=== PATIENT | female | born 1950 | race African-American/Black ===

== ENCOUNTER 2021-01-29 10:28 | Emergency (ER) | payer MEDICARE, MEDICAID ==
[~2021-01-29] VITALS: Ht 149.9 cm; Wt 46.0 kg
[~2021-01-29 10:28] MED LIST: BECL8.7A6 INH; ENAL5TAB21 PO; FURO-151 PO; LOVA40TA73 PO; POTA20TA12 PO; TRAV2.5D9 EACHEYE
[2021-01-29] MEDS ORDERED: DIPHENHYDRAMINE 25MG CAPSULE PO ONE (13:00)
[2021-01-29] MEDS ORDERED: PREDNISONE 20MG TABLET PO ONE (13:00)
[2021-01-29] MEDS ORDERED: P20 PO (14:14)
[2021-01-29] MEDS ORDERED: DIPH25CA83 MT (14:14)
[2021-01-29] MEDS ORDERED: P20 MT (14:17)
[2021-01-29 14:49] VITALS: BP 157/72
== END 2021-01-29 14:56 | disposition home or self-care (01) ==
LOC: ER 10:28
DX: T78.40XA Allergy, unspecified, initial encounter (principal); X58.XXXA Exposure to other specified factors, initial encounter; E78.00 Pure hypercholesterolemia, unspecified; I10 Essential (primary) hypertension; Z90.710 Acquired absence of both cervix and uterus; Z79.899 Other long term (current) drug therapy
CPT/HCPCS: 93005; 99283; J7512; Q0163

== ENCOUNTER 2024-01-25 13:23 | Inpatient (IN) | payer MEDICARE, MEDICAID ==
[~2024-01-25] VITALS: Ht 149.9 cm; Wt 44.9 kg
[~2024-01-25 13:23] MED LIST changes: +DIPH25CA83 MT; +ENAL-75 PO; -ENAL5TAB21 PO; +P20 MT; +POTA-194 PO; -POTA20TA12 PO; +TRAV2.5D EACHEYE; -TRAV2.5D9 EACHEYE
[2024-01-25 14:05] LABS: BASOPHILS % 0.4 % (0.0-2.0); EOSINOPHILS % 0.4 % (0.0-5.0); HEMATOCRIT. 43.4 % (36.0-48.0); HEMOGLOBIN. 13.9 g/dL (12.0-16.0); LYMPHOCYTES % 37.6 % (20.0-50.0); MEAN CORPUSCULAR HEMOGLOBIN 26.9 pg (28.0-32.0); MEAN CORPUSCULAR HGB CONC 31.9 g/dL (31.0-37.0); MEAN CORPUSCULAR VOLUME 84.2 fL (81.0-99.0); MEAN PLATELET VOLUME 7.2 fl (7.4-10.4); MONOCYTES % 6.4 % (2.0-8.0); NEUTROPHILS % 55.2 % (40.0-76.0); PLATELET 400 x1000/uL (130-400); RED BLOOD CELL COUNT 5.16 mill/uL (4.2-5.4); RED CELL DISTRIBUTION WIDTH 13.9 % (11.6-14.6); WHITE BLOOD COUNT 6.7 x1000/uL (4.5-11.0)
[2024-01-25 14:07] LABS: CHLORIDE 104 mEq/L (98-107); POTASSIUM 3.7 mEq/L (3.5-5.1); SODIUM 140 mEq/L (136-145)
[2024-01-25 14:08] LABS: CALCIUM 10.4 mg/dL (8.7-10.4); CARBON DIOXIDE 31 mEq/L (21-32)
[2024-01-25 14:13] LABS: CREATININE 0.9 mg/dL (0.6-1.0); GLUCOSE 91 mg/dL (70-105); UREA NITROGEN BLOOD 13 mg/dL (9-23)
[2024-01-25 14:15] LABS: TROPONIN I HIGH SENSITIVITY 4 ng/L (3.0-34)
[2024-01-25] MEDS ORDERED: CEFEPIME 2GM IN DEXT 5% 100ML IV ONE (15:30)
[2024-01-25] MEDS: CEFEPIME 2GM/100ML 100 ML IV NR (16:25)
[2024-01-25] MEDS ORDERED: ENOXAPARIN 60MG/0.6ML SYR SUBCUT SCH (16:30)
[2024-01-25] MEDS: ENOXAPARIN 60MG/0.6ML SYR SUBCUT SCH (16:56)
[2024-01-25] MEDS: VANCOMYCIN 1G PREMIX 200 ML IV NR (17:37)
[2024-01-25] MEDS ORDERED: ONDANSETRON HCL 4MG/2ML INJ IV PRN (21:00)
[2024-01-25 21:45] VITALS: BP 134/71; PULSE 81; RESP 17; TEMP 36.696
[2024-01-25] MEDS: CEFTRIAXONE 1GM/50ML 50 ML IV SCH (23:08)
[2024-01-25] MEDS ORDERED: IOHEXOL-350 100 ML BOTTLE ONE (23:13)
[2024-01-26] MEDS: ACETAMINOPHEN 325MG TABLET PO PRN (00:16)
[2024-01-26 04:00] VITALS: BP 126/76; PULSE 77; RESP 18; TEMP 36.61404; O2SAT 100
[2024-01-26 07:12] LABS: CLARITY URINE CLEAR (CLEAR); COLOR URINE YELLOW (YELLOW); GLUCOSE URINE NEGATIVE (NEGATIVE); KETONES URINE NEGATIVE (NEGATIVE); LEUKOCYTE ESTERASE URINE NEGATIVE (NEGATIVE); NITRITE URINE NEGATIVE (NEGATIVE); OCCULT BLOOD URINE NEGATIVE (NEGATIVE); PROTEIN URINE TRACE (NEGATIVE); SPECIFIC GRAVITY URINE 1.049 (1.005-1.030); UROBILINOGEN URINE 0.2 E.U./dL (0.2-1.0)
[2024-01-26 07:36] LABS: HEPATITIS B SURFACE ANTIGEN NEGATIVE (Negative)
[2024-01-26 07:58] LABS: HEPATITIS C AB NON REACTIVE (Neg) (Negative)
[2024-01-26 08:00] VITALS: BP 129/81; PULSE 83; RESP 17; TEMP 36.33624; O2SAT 98
[2024-01-26 08:43] LABS: BACTERIA URINE TRACE; HYALINE CASTS URINE 0-5 /lpf; RBC URINE 0-2 /hpf (0-2); SQUAMOUS EPITHELIAL CELL URINE 1+ /lpf (RARE/1+); WBC URINE 0-2 /hpf (0-2); YEAST URINE NONE SEEN
[2024-01-26 12:00] VITALS: BP 122/73; PULSE 86; RESP 17; TEMP 36.28068; O2SAT 98
[2024-01-26 16:00] VITALS: BP 135/70; PULSE 78; RESP 18; TEMP 36.50292; O2SAT 97
[2024-01-26 17:18] VITALS: BP 135/70; PULSE 78; TEMP 97.7; O2SAT 97
== END 2024-01-26 17:45 | disposition home or self-care (01) | DRG 557 ==
LOC: ER 13:23 → 5WST 16:42 → EDBEDREQTM 16:45 → EDBEDREQ 16:45 → 7EST 22:19
PROVIDERS: ADMIT Internal Medicine; ATTEND Internal Medicine
DX: M71.21 Synovial cyst of popliteal space [Baker], right knee (principal); J96.01 Acute respiratory failure with hypoxia; I10 Essential (primary) hypertension; I25.10 Atherosclerotic heart disease of native coronary artery without angina pectoris; Z20.822 Contact with and (suspected) exposure to COVID-19; K80.20 Calculus of gallbladder without cholecystitis without obstruction; M17.11 Unilateral primary osteoarthritis, right knee; M47.812 Spondylosis without myelopathy or radiculopathy, cervical region; Z79.51 Long term (current) use of inhaled steroids; Z90.710 Acquired absence of both cervix and uterus; M43.12 Spondylolisthesis, cervical region; R79.89 Other specified abnormal findings of blood chemistry; I65.23 Occlusion and stenosis of bilateral carotid arteries
CPT/HCPCS: 36415; 70360; 70491; 71045; 71275; 80048; 81003; 83880; 84484; 85025; 85379; 86705; 87340; 87426; 87804; 93005; 93971; 99285; J0692; J0696; J1650; J3370; Q9967